=== PATIENT | male | born 1995 | race Caucasian/White ===

== ENCOUNTER 2022-10-13 11:23 | Outpatient (CLI) | payer SELFPAY ==
[2022-10-13 14:59] LABS: Chlamydia DNA Amplified* NOT DETECTED (No Detected)
[2022-10-13 15:33] LABS: GC DNA Amplified* DETECTED (No Detected)
== END 2022-10-13 11:24 | disposition home or self-care (01) ==
LOC: LKVREF 11:24
PROVIDERS: Visit Provider Physician Assistant
DX: R30.0 Dysuria (principal)
CPT/HCPCS: 87491; 87591